=== PATIENT | male | born 1960 | race Caucasian/White ===

== ENCOUNTER 2019-01-15 16:49 | Observation (INO) ==
[2019-01-15] MEDS ORDERED: Ipratropium/Albuterol Neb 3 ML IH ONE (17:35)
[2019-01-15] MEDS ORDERED: methylPREDNISolone 125 MG/2 ML VIAL IVP ONE (17:35)
--- NOTE | 2019-01-15 17:37 | Emergency Department Note ---
Disposition Clinical Impression: Congestive heart failure Qualifiers: Heart failure type: unspecified Heart failure chronicity: acute on chronic Qualified Code(s): I50.9 - Heart failure, unspecified COPD (chronic obstructive pulmonary disease) Qualifiers: COPD type: unspecified COPD Qualified Code(s): J44.9 - Chronic obstructive pulmonary disease, unspecified Disposition: Admitted As Inpatient SOB HPI - General Chief Complaint: ED Shortness of Breath/Dyspnea Stated Complaint: shortness of breath Time Seen by Provider: 01/15/19 17:08 Source: patient, family Mode of arrival: private vehicle Limitations: no limitations Nursing Notes Reviewed: Yes Vital Signs Reviewed: Yes - History of Present Illness Patient presents to the ED complaining of shortness of breath and chest pain. States he is had the shortness breath for 1 week that has been progressively worsening. He was initially just exertional is now more constant. It is worse at night when he is trying to lie flat. Today he started having discomfort in his chest. In the middle of his chest and he describes it as aching pain that he rates a 2 out of 10. The pain does not radiate anywhere. No associated lightheadedness, diaphoresis or palpitations. He does report a chronic dry cough that has not changed recently. He denies any leg swelling. He reports some rhinorrhea but no nasal congestion or sore throat. No fever or chills. He just moved to this area from [place] and has not established care with a local primary care. I history of COPD, CHF, CAD, hypertension and hyperlipidemia. His most recent MRI was 4 years ago. He underwent bypass surgery in 2001. He is a smoker and also occasionally smokes marijuana. Denies any recent travel or sick contacts. His significant other states that he has also been drowsy and will nod off frequently over the past few days. - Related Data Home Medications Medication Instructions Recorded Confirmed Aspirin [Lo-Dose Aspirin EC] 81 mg PO DAILY 01/15/19 01/15/19 Gabapentin [Neurontin] 300 mg PO TID 01/15/19 01/15/19 Lisinopril-HCTZ 20-12.5 [Prinzide 1 each PO DAILY 01/15/19 01/15/19 20-12.5] Metoprolol [Lopressor] 25 mg PO BID 01/15/19 01/15/19 rOPINIRole [Requip] 1 mg PO HS 01/15/19 01/15/19 Allergies Allergy/AdvReac Type Severity Reaction Status Date / Time No Known Allergies Allergy Verified 01/15/19 16:55 Constitutional: Denies: fever, chills, weakness, weight change Eyes: Denies: eye pain, eye discharge, vision change ENT ED: Denies: ear pain, throat pain, dental pain, hearing loss, epistaxis, congestion, dysphagia Cardiovascular: Reports: chest pain, dyspnea on exertion, orthopnea. Denies: palpitations, edema, syncope Respiratory: Reports: cough, dyspnea. Denies: wheezes, hemoptysis, stridor Gastrointestinal: Denies: abdominal pain, nausea, vomiting, diarrhea, constipation, hematemesis, melena, hematochezia Genitourinary: Denies: urgency, dysuria, frequency, hematuria Musculoskeletal: Denies: back pain, neck pain, arthralgia, myalgia Integumentary: Denies: rash, abrasion, lesions Neurological: Denies: headache, weakness, numbness, paresthesias, confusion, abnormal gait, vertigo Psychiatric: Denies: anxiety, depression, suicidal thoughts, homicidal thoughts, auditory hallucinations, visual hallucinations Endocrine: Denies: fatigue Hematological/Lymphatic: Denies: easy bleeding, easy bruising Allergic/Immunologic: Denies: facial swelling, urticaria Past Medical History - Past Medical History Medical history: Reports: CHF, COPD, coronary artery disease, hyperlipidemia, hypertension, other Psychiatric history: Reports: no psych history - Social History Smoking Status: Current every day smoker Smokeless Tobacco Status: No Alcohol use: Reports: none Drug use: Reports: marijuana Physical Exam - General Limitations: no limitations General appearance: alert, in no apparent distress - Head Head exam: atraumatic, normocephalic, normal inspection - Eye Eye exam: Present: normal appearance, PERRL, EOMI - ENT ENT exam: normal exam, normal oropharynx, mucous membranes moist - Neck Neck exam: Present: normal inspection, full ROM, trachea midline - Chest Chest inspection: Present: normal inspection, symmetric chest wall rise - Respiratory Respiratory exam: Absent: respiratory distress - Expanded Respiratory Exam Location: wheezes: Left, Right, Upper, Lower, rhonchi: Left, Right, Upper, Lower - Cardiovascular Cardiovascular exam: Present: regular rate, normal rhythm, normal heart sounds - Abdominal Exam Abdominal exam: Present: soft, Non-Tender. Absent: tenderness, distention, guarding, rebound, rigidity - Extremities Exam Extremities exam: Present: normal inspection, full ROM, pedal edema (1+). Absent: tenderness - Back Exam Back exam: Present: normal inspection, full ROM. Absent: tenderness - Neurological Exam Neurological exam: Present: alert, oriented X3 - Psychiatric Psychiatric exam: Present: normal affect, normal mood - Skin Skin exam: Present: warm, dry, intact, normal color Course Course Narrative: Patient presents to the ED complaining of progressively worsening shortness of breath and now some chest discomfort with a history of a COPD and CHF. He has wheezing as well as rhonchi on exam and some lower extremity swelling but is afebrile, nontoxic in appearance and hemodynamically stable. He may be experiencing either CHF and or COPD exacerbation. Given his drowsiness is also concern for possibly CO2 retention. Will check EKG, chest x-ray and lab work. - Reevaluation(s) Reevaluation #1: Chest x-ray shows some possible vascular congestion and small effusions. Troponin is normal. CBC and BMP are unremarkable. BNP however is over 900. ABG shows hypoxia but no hypercapnia and a normal pH. He was started on 2 L oxygen via nasal cannula and reports improvement in his breathing. Will start the patient on Lasix as his only diuretic is had chlorothiazide with the lisinopril. Discussed with patient the need for admission for diuresis and medication adjustments and oxygen therapy and he is in agreement. Will contact the hospitalist. Time: 19:03 Reevaluation #2: I spoke to the hospitalist on-call, Dr. Maloney who has agreed to admit the patient. Patient updated on plan. Time: 19:47 Vital Signs Temperature 98.8 F 01/15/19 16:52 Pulse Rate 79 01/15/19 16:52 Respiratory Rate 16 01/15/19 16:52 Blood Pressure 144/95 01/15/19 16:52 O2 Sat by Pulse Oximetry 97 01/15/19 16:52 Temperature 98.0 F 01/16/19 04:17 Pulse Rate 59 01/16/19 04:17 Respiratory Rate 16 01/15/19 20:12 Blood Pressure 127/82 01/16/19 04:17 O2 Sat by Pulse Oximetry 96 01/16/19 04:17 Oxygen Delivery Oxygen Delivery Nasal Cannula Shortness of Breath/Dyspnea - Differential Diagnosis Likely: acute exacerbation of chronic obstructive airways disease, congestive heart failure, pneumonia - Medical Records Medical records reviewed: Yes I reviewed the patient's medical records. - Lab Data Lab results reviewed: Yes I reviewed the patient's lab results. Result diagrams: 01/15/19 17:58 01/16/19 01:56 Lab Results 01/15/19 01/15/19 01/15/19 Range/Units 17:58 17:58 17:58 WBC 6.8 (4.3-11.1) K/mcL RBC 4.49 (4.19-5.50) M/mcL Hgb 13.1 (12.9-16.9) g/dL Hct 40.5 (37.5-50.1) % MCV 90.2 (83.0-100.0) fL MCH 29.2 (28.0-33.3) pg MCHC 32.3 (31.6-35.5) g/dL RDW 14.5 (11.5-14.5) % Plt Count 109 L (140-400) K/mcL MPV 11.7 (9.4-12.4) fL Immature Gran % 0.3 (0-4) % Seg Neutrophils % 68.1 % Lymphocytes % 18.4 % Monocytes % 11.2 % Eosinophils % 1.3 % Basophils % 0.7 % Neutrophils # 4.6 (1.6-8.9) K/mcL Lymphocytes # 1.3 (0.6-4.6) K/mcL Monocytes # 0.8 (0.0-1.3) K/mcL Eosinophils # 0.1 (0.0-0.6) K/mcL Basophils # 0.1 (0.0-0.2) K/mcL PT 12.5 H (9.4-12.1) Seconds INR 1.1 APTT 33.6 (26.0-36.0) Seconds ABG pH (7.32-7.45) pH Units ABG pCO2 (35-45) mmHg ABG pO2 (85-104) mmHg ABG HCO3 (21-27) mEq/L ABG Total CO2 (20-26) mEq/L ABG O2 Saturation (95-98) % ABG Base Excess (-2 to 3) mEq/L Sodium 135 L (136-145) mEq/L Potassium 3.7 (3.5-5.1) mEq/L Chloride 101 (98-107) mEq/L Carbon Dioxide 28 (23-29) mEq/L BUN 10 (8-23) mg/dL Creatinine 1.28 (0.70-1.30) mg/dL Est GFR ( Amer) > 60 (> 60) Est GFR (Non-Af Amer) 57 L (> 60) BUN/Creatinine Ratio 8 (6-26) Glucose 113 H (70-105) mg/dL Calculated Osmolality 280 (280-300) Calcium 9.1 (8.6-10.3) mg/dL Troponin I 0.03 (< 0.04) ng/mL B-Natriuretic Peptide (Less than 100) pg/mL 01/15/19 01/15/19 Range/Units 17:58 18:02 WBC (4.3-11.1) K/mcL RBC (4.19-5.50) M/mcL Hgb (12.9-16.9) g/dL Hct (37.5-50.1) % MCV (83.0-100.0) fL MCH (28.0-33.3) pg MCHC (31.6-35.5) g/dL RDW (11.5-14.5) % Plt Count (140-400) K/mcL MPV (9.4-12.4) fL Immature Gran % (0-4) % Seg Neutrophils % % Lymphocytes % % Monocytes % % Eosinophils % % Basophils % % Neutrophils # (1.6-8.9) K/mcL Lymphocytes # (0.6-4.6) K/mcL Monocytes # (0.0-1.3) K/mcL Eosinophils # (0.0-0.6) K/mcL Basophils # (0.0-0.2) K/mcL PT (9.4-12.1) Seconds INR APTT (26.0-36.0) Seconds ABG pH 7.39 (7.32-7.45) pH Units ABG pCO2 45 (35-45) mmHg ABG pO2 56 L (85-104) mmHg ABG HCO3 27 (21-27) mEq/L ABG Total CO2 29 H (20-26) mEq/L ABG O2 Saturation 88 L (95-98) % ABG Base Excess 2 (-2 to 3) mEq/L Sodium (136-145) mEq/L Potassium (3.5-5.1) mEq/L Chloride (98-107) mEq/L Carbon Dioxide (23-29) mEq/L BUN (8-23) mg/dL Creatinine (0.70-1.30) mg/dL Est GFR ( Amer) (> 60) Est GFR (Non-Af Amer) (> 60) BUN/Creatinine Ratio (6-26) Glucose (70-105) mg/dL Calculated Osmolality (280-300) Calcium (8.6-10.3) mg/dL Troponin I (< 0.04) ng/mL B-Natriuretic Peptide 911 H (Less than 100) pg/mL - Radiology Data Radiology results reviewed: Yes I reviewed the patient's radiology results. ITS Impressions Chest X-Ray 01/15/19 17:35 IMPRESSION: Prominence of the interstitial markings, possibly mild interstitial edema or infiltrate. Cardiomegaly with possible trace effusions. D/ / Ben Moss MD / Ben Moss MD Interpreting Provider: Ben Moss MD - EKG Data EKG attestation: Yes I reviewed and interpreted this EKG. EKG shows normal: Reports: sinus rhythm Rate: Reports: normal Rhythm: Reports: NSR, PVC's, PAC's [place]/QRS: Reports: LBBB When compared to previous EKG there are: previous EKG unavailable
[2019-01-15 18:02] LABS: Basophils # 0.1 K/mcL (0.0-0.2); Basophils % 0.7 %; Eosinophils # 0.1 K/mcL (0.0-0.6); Eosinophils % 1.3 %; Hematocrit 40.5 % (37.5-50.1); Hemoglobin 13.1 g/dL (12.9-16.9); Immature Granulocytes % 0.3 % (0-4); Lymphocytes # 1.3 K/mcL (0.6-4.6); Lymphocytes % 18.4 %; Mean Corpuscular HGB Conc 32.3 g/dL (31.6-35.5); Mean Corpuscular Hemoglobin 29.2 pg (28.0-33.3); Mean Corpuscular Volume 90.2 fL (83.0-100.0); Mean Platelet Volume 11.7 fL (9.4-12.4); Monocytes # 0.8 K/mcL (0.0-1.3); Monocytes % 11.2 %; Neutrophils # 4.6 K/mcL (1.6-8.9); Platelet Count 109 K/mcL (140-400); Red Blood Count 4.49 M/mcL (4.19-5.50); Red Cell Distribution Width 14.5 % (11.5-14.5); Segmented Neutrophils % 68.1 %
[2019-01-15 18:05] LABS: ABG Base Excess 2 mEq/L (-2 to 3); ABG HCO3 27 mEq/L (21-27); ABG Oxygen Saturation 88 % (95-98); ABG PCO2 45 mmHg (35-45); ABG PH 7.39 pH Units (7.32-7.45); ABG PO2 56 mmHg (85-104); ABG TCO2 29 mEq/L (20-26)
[2019-01-15 18:15] LABS: BUN/Creatinine Ratio 8 (6-26); Blood Urea Nitrogen 10 mg/dL (8-23); Calcium 9.1 mg/dL (8.6-10.3); Carbon Dioxide 28 mEq/L (23-29); Chloride 101 mEq/L (98-107); Glucose 113 mg/dL (70-105); Osmolality,Calculated 280 (280-300); Potassium 3.7 mEq/L (3.5-5.1); Sodium 135 mEq/L (136-145); eGFR For Non-African Americans 57 (> 60)
[2019-01-15 18:17] LABS: Troponin I 0.03 ng/mL (< 0.04)
[2019-01-15] MEDS ORDERED: Furosemide 20 MG/2 ML VIAL IVP ONE (18:31)
[2019-01-15 18:42] LABS: INR 1.1; Prothrombin Time 12.5 Seconds (9.4-12.1)
[2019-01-15 18:43] LABS: Activated Partial Thrombo Time 33.6 Seconds (26.0-36.0)
[2019-01-15] MEDS ORDERED: Naloxone 0.4 MG/ML INJ IVP PRN (19:39)
[2019-01-15] MEDS ORDERED: rOPINIRole 1 MG TABLET PO SCH (21:00)
[2019-01-15] MEDS: Gabapentin 300 MG CAPSULE PO SCH (21:02)
[2019-01-15] MEDS ORDERED: Ondansetron ODT 4 MG TAB.RAPDIS SL PRN (22:13)
[2019-01-16] MEDS: Ipratropium/Albuterol Neb 3 ML IH PRN ×3 (01:55→21:03)
[2019-01-16 02:16] LABS: BUN/Creatinine Ratio 10 (6-26); Blood Urea Nitrogen 12 mg/dL (8-23); Carbon Dioxide 30 mEq/L (23-29); Chloride 101 mEq/L (98-107); Glucose 154 mg/dL (70-105); Osmolality,Calculated 279 (280-300); Potassium 4.6 mEq/L (3.5-5.1); Sodium 133 mEq/L (136-145); eGFR For Non-African Americans > 60 (> 60)
[2019-01-16] MEDS: *HR* Enoxaparin 40 MG/0.4 ML SYRINGE SQ SCH (05:09)
[2019-01-16] MEDS ORDERED: Lisinopril-HCTZ 20-12.5mg TABLET PO SCH (09:00)
[2019-01-16] MEDS: Gabapentin 300 MG CAPSULE PO SCH ×3 (09:15→20:30)
[2019-01-16] MEDS: Aspirin Enteric Coated 81 MG Tablet PO SCH (09:15)
--- NOTE | 2019-01-16 13:00 | Electrocardiograph Report ---
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
--- NOTE | 2019-01-16 16:34 | Internal Med History&Physical ---
Date of Encounter: 01/16/19 Time of Encounter: 16:20 Assessment and Plan (1) Shortness of breath Current visit: Yes Status: Acute Likely 2/2 decompnesated heart failure. Per history, the patient does have CHF, but does not know what his LVEF is (and we do not have this record). - Tele, strict I&O, monitor renal function + electrolytes closely when actively getting diuresed. - S/P 20mg of IV Lasix in the ED, will give 20mg more of IV Lasix now given c rackles. - Echo on Friday. - Continue home ACEI and BB. (2) Chest pain Current visit: Yes Status: Acute Likely 2/2 decompensated heart failure; moderate HEART score. - Troponin (-) x 3 at this point, with no further CP. - CTM; consider stress test as appropriate. Qualifiers: Chest pain type: other chest pain Qualified Code(s): R07.89 - Other chest pain; R07.8 - Other chest pain (3) Tobacco abuse Current visit: Yes Status: Chronic Counseling provided; nicotine patches here. (4) Thrombocytopenia Current visit: Yes Status: Acute No bleeding symptoms. CTM. (5) Hypoxemia Current visit: Yes Status: Acute Likely 2/2 decompensated heart failure. Now on RA. Management per heart failure section. (6) Elevated brain natriuretic peptide (BNP) level Current visit: Yes Status: Acute (7) Hypertension Current visit: Yes Status: Chronic Continue home BP regimen; will adjust as appropriate. Qualifiers: Hypertension type: essential hypertension Qualified Code(s): I10 - Ess ential (primary) hypertension Internal Medicine - H&P: HPI Chief complaint: CP + SOB Admitted From: Emergency Dept Plans for Post Hospital Care: Home History of present illness: Mr. Gordon is a 58 year old male who presented to our ED with CP + SOB. Per the patient, SOB has been going for weeks and is worse when he lays down. CP is described as retrosternal, non-radiating, dull, intermittent, 0/10 currently, alleviated by nothing in particular, and exacerbated by nothing in particular. Other associated symptoms include leg swellings. Patient reports no recent fever, chills, cough, n/v, seizure, syncope, bruising, or bleeding symptoms. Upon further questioning, the patient does have a diagnosis of CHF, but he is not sure what his LVEF is. Of note, the patient is not on Lasix at home. In our ED, the patient was mildly hypertensive and requiring 2LNC. Labs were significant for mild thrombocytopenia, hypoxemia, a creatinine of 1.28 (no baseline available), and elevated BNP. EKG showed LBBB and troponin was (-) x 1. CXR showed "Prominence of the interstitial markings, possibly mild interstitial edema or infiltrate. Cardiomegaly with possible trace effusions." Patient received Done, Solumedrol, 20mg of IV Lassix, and was admitted to our inpatient side for further management. Since then, tropoin was (-) x 2 more times and the patient has been weaned to RA. Past Med Surg Social Fam HX - Past Medical History Medical history: CHF, COPD, coronary artery disease, hyperlipidemia, hypertension, other Additional medical history: RESTLESS LEGS Psychiatric history: no psych history - Past Surgical History Additional surgical history: right leg surgery 1982 - Social History Smoking Status: Current every day smoker (Smokes less than 1PPD, but more than 0.5 PPD.) Smokeless Tobacco Status: No Alcohol use: none Drug use: marijuana - Family History Mother Living Status: Hx Family Cardiac Disorders: Yes ( Mother had an NH prior to 65yo.) Internal Medicine - H&P: Meds Aspirin [Lo-Dose Aspirin EC] 81 mg PO DAILY 01/15/19 [History] Gabapentin [Neurontin] 600 mg PO TID 01/15/19 [History] Metoprolol [Lopressor] 25 mg PO BID 01/15/19 [History] rOPINIRole [Requip] 1 mg PO TID 01/15/19 [History] Aspirin 81 mg PO DAILY 01/16/19 [History] Atorvastatin [Lipitor] 40 mg PO HS 01/16/19 [History] Ferrous Sulfate [Iron] 325 mg PO TID 01/16/19 [History] Furosemide [Lasix] 20 mg PO DAILY 01/16/19 [History] Lisinopril-HCTZ 10-12.5 [Prinzide 10-12.5] 1 each PO DAILY 01/16/19 [History] Allergy/AdvReac Type Severity Reaction Status Date / Time No Known Allergies Allergy Verified 01/15/19 16:55 All Systems PM: A 10-system review of systems was performed and is negative for pertinent findin gs except as documented above in the HPI. Review of systems: 10 systems reviewed and (-) other than mentioned per HPI. - Constitutional Vitals: Temp Pulse Resp BP Pulse Ox 97.8 F 65 16 103/62 97 01/16/19 12:00 01/16/19 12:00 01/16/19 12:00 01/16/19 12:00 01/16/19 12:00 Exam: Gen: A&Ox3, NAD. HEENT: NCAT. Neck: No palpable lymphadenopathy or thyromegaly. CV: RRR, S1S2. No murmur. Capillary refill < 2 seconds. Pulm: Adequate air exchange with mild bibasilar crackles. Abd: (+)BS. NDNT. Neuro: Left-sided weakness, otherwise non-focal. Skin: No rash. Ext: No pitting edema. Internal Med - H&P Results - Labs CBC & Chem 7: 01/15/19 17:58 01/16/19 01:56 Labs: Short CBC 01/15/19 Range/Units 17:58 WBC 6.8 (4.3-11.1) K/mcL Hgb 13.1 (12.9-16.9) g/dL Hct 40.5 (37.5-50.1) % Plt Count 109 L (140-400) K/mcL Neutrophils # 4.6 (1.6-8.9) K/mcL BMP 01/15/19 01/16/19 17:58 01:56 Sodium 135 L 133 L Potassium 3.7 4.6 Chloride 101 101 Carbon Dioxide 28 30 H BUN 10 12 Creatinine 1.28 1.21 Glucose 113 H 154 H Calcium 9.1 9.0 Cardiac Enzymes 01/15/19 01/15/19 01/16/19 Range/Units 17:58 22:05 01:56 Troponin I 0.03 0.03 0.03 (< 0.04) ng/mL - ABG Interpretation ABG results: 01/15/19 18:02 ABG pH 7.39 ABG pCO2 45 ABG pO2 56 L ABG HCO3 27 ABG Total CO2 29 H ABG O2 Saturation 88 L ABG Base Excess 2 - Impressions ITS Impressions Chest X-Ray 01/15/19 17:35 IMPRESSION: Prominence of the interstitial markings, possibly mild interstitial edema or infiltrate. Cardiomegaly with possible trace effusions. D/ / Ben Moss MD / Ben Moss MD Interpreting Provider: Ben Moss MD - VTE Reasons for not Prescribing Prophylaxis: Treatment not Indicated - Low risk for VTE
[2019-01-16] MEDS ORDERED: FUROSEMIDE IV ONE (16:48)
[2019-01-16] MEDS ORDERED: D5 IV ONE (16:48)
[2019-01-16] MEDS ORDERED: WATER IV ONE (16:48)
[2019-01-16] MEDS ORDERED: Furosemide 20 MG/2 ML VIAL IVP ONE (17:20)
[2019-01-16] MEDS: Nicotine 21 MG PATCH.TD24 TD SCH (17:55)
[2019-01-16 19:41] LABS: Amphetamine Screen,Urine Negative ng/mL (Cutoff=1000); Barbiturate Screen,Urine Negative ng/mL (Cutoff=200); Benzodiazepines Screen,Urine Negative ng/mL (Cutoff=200); Cannabinoid Screen,Urine Negative ng/mL (Cutoff = 50); Cocaine Screen,Urine Negative ng/mL (Cutoff= 300); Opiate Screen,Urine Negative ng/mL (Cutoff=300); Phencyclidine Screen,Urine Negative ng/mL (Cutoff=25)
[2019-01-16] MEDS: rOPINIRole 1 MG TABLET PO SCH (20:30)
[2019-01-17] MEDS: Ipratropium/Albuterol Neb 3 ML IH PRN (02:37)
[2019-01-17 05:40] LABS: Alanine Aminotransferase 21 Units/L (7-52); Albumin 3.9 g/dL (3.5-5.7); Albumin/Globulin Ratio 1.7 (1.1-2.2); Alkaline Phosphatase 83 Units/L (34-104); Aspartate Amino Transferase 18 Units/L (13-39); BUN/Creatinine Ratio 15 (6-26); Bilirubin,Direct 0.5 mg/dL (0.0-0.2); Bilirubin,Indirect 1.2 mg/dL (0.0-1.2); Bilirubin,Total 1.7 mg/dL (0.3-1.0); Blood Urea Nitrogen 21 mg/dL (8-23); Calcium 9.3 mg/dL (8.6-10.3); Carbon Dioxide 32 mEq/L (23-29); Chloride 92 mEq/L (98-107); Globulin 2.3 g/dL (2.4-3.5); Glucose 88 mg/dL (70-105); Magnesium 1.9 mg/dL (1.6-2.6); Osmolality,Calculated 276 (280-300); Potassium 4.1 mEq/L (3.5-5.1); Sodium 132 mEq/L (136-145); Total Protein 6.2 g/dL (6.4-8.9); eGFR For Non-African Americans 53 (> 60)
[2019-01-17] MEDS: *HR* Enoxaparin 40 MG/0.4 ML SYRINGE SQ SCH (06:02)
[2019-01-17] MEDS: Nicotine 21 MG PATCH.TD24 TD SCH (08:22)
[2019-01-17] MEDS: Gabapentin 300 MG CAPSULE PO SCH ×3 (08:24→19:44)
[2019-01-17] MEDS: Aspirin Enteric Coated 81 MG Tablet PO SCH (08:24)
[2019-01-17] MEDS: rOPINIRole 1 MG TABLET PO SCH ×3 (08:24→19:45)
--- NOTE | 2019-01-17 12:46 | Internal Med Progress Note ---
Date of Encounter: 01/17/19 Time of Encounter: 11:50 - Assessment and plan (1) Shortness of breath Current Visit: Yes Status: Acute Assessment and plan: Likely 2/2 decompnesated heart failure. Per history, the patient does have CHF, but does not know what his LVEF is (and we do not have this record). - Tele, strict I&O, monitor renal function + electrolytes closely when actively getting diuresed. - S/P 20mg of IV Lasix in the ED, and 20mg of IV Lasix here on the inpatient side. Appears euvolemic at this time. Will hold off on further diuresis for now, especially given increase in Cr. - Echo on Friday. - Continue home ACEI and BB. (2) Chest pain Current Visit: Yes Status: Acute Assessment and plan: Likely 2/2 decompensated heart failure; moderate HEART score. - Troponin (-) x 3 at this point, with no further CP. - CTM; consider stress test as appropriate. Qualifiers: Chest pain type: other chest pain Qualified Code(s): R07.89 - Other chest pain; R07.8 - Other chest pain (3) Tobacco abuse Current Visit: Yes Status: Chronic Assessment and plan: Counseling provided; nicotine patches here. (4) Thrombocytopenia Current Visit: Yes Status: Acute Assessment and plan: No bleeding symptoms. CTM. (5) Hypoxemia Current Visit: Yes Status: Acute Assessment and plan: Likely 2/2 decompensated heart failure. Now on RA. Management per heart failure section. (6) Elevated brain natriuretic peptide (BNP) level Current Visit: Yes Status: Acute (7) Hypertension Current Visit: Yes Status: Chronic Assessment and plan: Continue home BP regimen; will adjust as appropriate. Qualifiers: Hypertension type: essential hypertension Qualified Code(s): I10 - Essential (primary) hypertension (8) History of thyroid disease Current Visit: Yes Status: Acute Assessment and plan: Will obtain TSH. - Time Spent With Patient less than 15 minutes - Subjective Interval history: Doing slightly better. Has been dozing off per nursing staff, for which a UTox was performed and (-). Per the patient, he thinks he is dozing off because of "thyroid problem." Per the patient, he has thyroid issues and is supposed to be on a thyroid medication, but is not currently taking it because he does not have a doctor for this. - Constitutional Vitals: Temp Pulse Resp BP Pulse Ox 97.3 F L 63 15 111/75 97 01/17/19 07:47 01/17/19 07:47 01/17/19 07:47 01/17/19 07:47 01/17/19 08:46 Exam: Gen: A&Ox3, NAD. HEENT: NCAT. Neck: No palpable lymphadenopathy or thyromegaly. CV: RRR, S1S2. No murmur. Capillary refill < 2 seconds. Pulm: CTAB. Abd: (+)BS. NDNT. Neuro: Non-focal. Skin: No rash. Ext: No pitting edema. Internal Medicine: Result - Labs CBC & Chem 7: 01/15/19 17:58 01/17/19 04:40 Labs: BMP 01/17/19 04:40 Sodium 132 L Potassium 4.1 Chloride 92 L Carbon Dioxide 32 H BUN 21 Creatinine 1.37 H Glucose 88 Calcium 9.3 Liver Function 01/17/19 Range/Units 04:40 Total Bilirubin 1.7 H (0.3-1.0) mg/dL Direct Bilirubin 0.5 H (0.0-0.2) mg/dL AST 18 (13-39) Units/L ALT 21 (7-52) Units/L Alkaline Phosphatase 83 (34-104) Units/L Albumin 3.9 (3.5-5.7) g/dL - ABG Interpretation ABG results: ABG ABG pH 7.39 pH Units (7.32-7.45) 01/15/19 18:02 ABG pCO2 45 mmHg (35-45) 01/15/19 18:02 ABG pO2 56 mmHg (85-104) L 01/15/19 18:02 ABG O2 Saturation 88 % (95-98) L 01/15/19 18:02 PT/INR, D-dimer PT 12.5 Seconds (9.4-12.1) H 01/15/19 17:58 - VTE Reasons for not Prescribing Prophylaxis: Treatment not Indicated - Low risk for VTE Consult Discharge Plan - Plan Referrals: NONE,PCP [Primary Care Provider] -
[2019-01-17] MEDS ORDERED: Acetaminophen 325 MG TABLET PO PRN (13:01)
[2019-01-17 17:42] LABS: Bilirubin,Urine Negative (Negative); Blood,Urine Negative (Negative); Clarity,Urine Clear (Clear); Color,Urine Yellow (Yellow); Glucose,Urine (UA) Normal (Normal); Ketones,Urine Trace mg/dL (Negative); Leukocyte Esterase,Urine Negative (Negative); Nitrite,Urine Negative (Negative); PH,Urine 5.5 pH Units (5.0-8.0); Protein,Urine Trace mg/dL (Neg-Trace)
[2019-01-17] MEDS ORDERED: *HR* Morphine 2 MG/ML SYRINGE IVP PRN (18:42)
[2019-01-17] MEDS ORDERED: Nitroglycerin 1 INCH/GM PACKET TP SCH (18:45)
[2019-01-17] MEDS ORDERED: Nitroglycerin 0.4 MG TAB.SUBL SL PRN (18:47)
[2019-01-17] MEDS ORDERED: Nitroglycerin 1 INCH/GM PACKET ONE (18:51)
[2019-01-17 19:14] VITALS: BP 138/95
[2019-01-17] MEDS ORDERED: *HR* Heparin 5,000 UNIT/ML VIAL IVP ONE (19:29)
[2019-01-17] MEDS ORDERED: *HR* Heparin 5,000 UNIT/ML VIAL IVP PRN ×2 (19:29)
[2019-01-17] MEDS ORDERED: Heparin 25,000 UNIT/250 ML D5W 25,000 UNIT/250 ML IV.SOLN IVC SCH (19:30)
[2019-01-17 20:23] LABS: Hematocrit 41.9 % (37.5-50.1); Hemoglobin 13.5 g/dL (12.9-16.9); Mean Corpuscular HGB Conc 32.2 g/dL (31.6-35.5); Mean Corpuscular Hemoglobin 28.7 pg (28.0-33.3); Mean Platelet Volume 11.6 fL (9.4-12.4); Platelet Count 126 K/mcL (140-400); Red Blood Count 4.71 M/mcL (4.19-5.50); Red Cell Distribution Width 14.4 % (11.5-14.5)
[2019-01-17 20:37] LABS: INR 1.1; Prothrombin Time 11.9 Seconds (9.4-12.1)
[2019-01-17 20:40] LABS: Heparin anti-factor XA UFH 0.02 IU/mL (0.30-0.70)
--- NOTE | 2019-01-18 10:51 | Discharge Summary ---
Date of Encounter: 01/17/19 Time of Encounter: 07:30 Hospital course: Mr. Gordon is a 58 year old male admitted with chest discomfort and back pain. While this was stable, he developed repeat chest pain, ventricular tachycardia, and was found to have an elevated troponin. He was thus transferred to a higher level of care. I was contacted last evening while applications instructor but did not see the patient. He had been seen by Dr. Maloney, earlier in the day. - Time Spent with Patient Total time spent providing and/or coordinating discharge services: - Discharge Medications Prescriptions: No Action rOPINIRole [Requip] 1 mg PO TID Gabapentin [Neurontin] 600 mg PO TID Metoprolol [Lopressor] 25 mg PO BID Aspirin [Lo-Dose Aspirin EC] 81 mg PO DAILY Lisinopril-HCTZ 10-12.5 [Prinzide 10-12.5] 1 each PO DAILY Furosemide [Lasix] 20 mg PO DAILY Aspirin 81 mg PO DAILY Atorvastatin [Lipitor] 40 mg PO HS Ferrous Sulfate [Iron] 325 mg PO TID Home Medications: Aspirin [Lo-Dose Aspirin EC] 81 mg PO DAILY 01/15/19 [History] Gabapentin [Neurontin] 600 mg PO TID 01/15/19 [History] Metoprolol [Lopressor] 25 mg PO BID 01/15/19 [History] rOPINIRole [Requip] 1 mg PO TID 01/15/19 [History] Aspirin 81 mg PO DAILY 01/16/19 [History] Atorvastatin [Lipitor] 40 mg PO HS 01/16/19 [History] Ferrous Sulfate [Iron] 325 mg PO TID 01/16/19 [History] Furosemide [Lasix] 20 mg PO DAILY 01/16/19 [History] Lisinopril-HCTZ 10-12.5 [Prinzide 10-12.5] 1 each PO DAILY 01/16/19 [History] Allergies/Adverse Reactions: Allergy/AdvReac Type Severity Reaction Status Date / Time No Known Allergies Allergy Verified 01/15/19 16:55 Date of admission: 01/15/19 20:00 Primary care physician: PCP NONE - Constitutional Vitals: Temp Pulse Resp BP Pulse Ox 97.9 F 70 18 138/95 91 01/17/19 19:12 01/17/19 19:12 01/17/19 19:12 01/17/19 19:12 01/17/19 21:00 - Patient Status Disposition: Transfer Other Condition: Fair - Discharge Instructions Follow Up With: NONE,PCP [Primary Care Provider] - - VTE Reasons for not Prescribing Prophylaxis: Treatment not Indicated - Low risk for VTE
--- NOTE | 2019-01-19 17:36 | Electrocardiograph Report ---
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
--- NOTE | 2019-01-19 17:59 | Electrocardiograph Report ---
[place] [address] Test Date: 2019-01-17 Pat Name: Hal Gordon Department: 2001 Room: 119 Gender: M Hand Marker: : 1960 Requested By: Neeraj Maloney Order Number: [id number] Reading MD: Nita Partida Measurements Intervals [place] Rate: 65 P: 7 ID: 133 QRS: -11 QRSD: 156 T: 132 QT: 481 QTc: 493 Interpretive Statements SINUS RHYTHM WITH OCCASIONAL SUPRAVENTRICULAR PREMATURE COMPLEXES LEFT BUNDLE BRANCH BLOCK [120+ ms QRS DURATION, 80+ ms Q/S IN V1/V2, 85+ ms R IN I/aVL/V5/V6] Electronically Signed On 01-19-2019 17:58:03 EDT by Nita Partida
--- NOTE | 2019-01-21 15:01 | Electrocardiograph Report ---
[place] [address] Test Date: 2019-01-17 Pat Name: Hal Gordon Department: 2001 Room: 119 Gender: M Install Technician: Gibson : 1960 Requested By: Juan Jose Graham Order Number: [id number] Reading MD: John Sam Measurements Intervals [place] Rate: 64 P: 50 [place]: 137 QRS: -5 QRSD: 155 T: 139 QT: 463 QTc: 472 Interpretive Statements SINUS RHYTHM WITH OCCASIONAL SUPRAVENTRICULAR PREMATURE COMPLEXES NSIVCD Electronically Signed On 01-21-2019 15:00:09 EDT by John Sam
== END 2019-01-17 22:45 | disposition other institution (70) ==
LOC: INPGRE 16:49 → EMEROOGRE 16:49 → INPGRE 20:13